=== PATIENT | male | born 1955 | race Caucasian/White ===

== ENCOUNTER → 2016-05-16 09:56 | Outpatient (CLI) | payer OTHER | END | disposition home or self-care (01) | LOC: D.RAD 09:56 | DX: Z02.71 Encounter for disability determination (principal) ==

== ENCOUNTER 2017-07-08 11:33 | Observation (INO) | payer MEDICARE ==
[~2017-07-08] VITALS: Ht 172.7 cm; Wt 82.1 kg
--- NOTE | ~2017-07-08 | HEMODYNAMI ---
PATIENT:MARLA RAINEY MEDICAL RECORD: [id number] : 53 LOCATION:[address] ADMISSION DATE: 07/08/17 Generatedon:07/09/201711:14 Patient name: MARLA RAINEY Patient #: [id number] SSN: : 1955 Date of study: 07/09/2017 Page: Of Hemodynamic Procedure Report Patient Data Patient Demographics Procedure consent was obtained First Name: MARLA Gender: Male Last Name: REDD : 1955 [facility] Initial: ALEX Age: 62 year(s) Patient #: [id number] Race: Unknown Additional ID: [id number] Contact details [address]: [address] [place] [address] DRIVE State: [place] City: [place] Zip code: [address] Past Medical History Allergies: No known allergies Admission Admission Data Admission Date: 07/08/2017 Admission Time: 13:33 Room #: 2127 Height (in.): 67.72 BSA: 1.95 (m2) Height (cm.): 172 BMI: 27.72 (kg/m2) Weight (lbs.): 180.78 Weight (kg.): 82 Procedure Procedure Types Cath Procedure Diagnostic Procedure C [facility] w/Coronaries Sedation Charges Moderate Sedation up to 45 minutes PCI Procedure Coronary Stent Coronary Stent Initial Procedure Description Procedure Date Procedure Date: 07/09/2017 Procedure Start Time: 10:26 Procedure End Time: 11:12 Procedure Staff Name Function Madhav Borja MD Performing Physician Elle Mon RT Monitor Madiha Hilton RT Scrub Aris Ambrocio RN Nurse Procedure Data Cath Procedure Fluoroscopy Diagnostic fluoroscopy Total fluoroscopy Time: 7.7 time: 7.7 min min Diagnostic fluoroscopy Total fluoroscopy dose: dose: 1360 mGy 1360 mGy Contrast Material Contrast Material Type Amount (ml) Isovue 300 120 Entry Location Entry Primary Successful Side Size Upsize Upsize Entry Closure Mukherjee ccessful Closure Location (Fr) 1 (Fr) 2 (Fr) Remarks Device Remarks Radial Right 6 Fr Mechanical artery Short Compression Estimated blood loss: 10 ml Diagnostic catheters Device Type Used For End Catheter Placement DIAGNOSTIC Ghulam 110cm Procedure 5Fr catheter ([id number]) Procedure Complications No complications Procedure Medications Medication Administration Route Dosage 0.9% NaCl I.V. 100 ml/hr Oxygen etCO2 Nasal cannula 2 l/min Heparin Flush Bag added to field 2 bags (1000units/500ml NS) Lidocaine 2% added to field 20 Radial Cocktail added to field 1 syringe (Verapomil 2mg/Nitro 400mcg/Heparin 1500units) Versed I.V. 2 mg Fentanyl I.V. 25 mcg Radial Cocktail I.A. 1 syringe (Verapomil 2mg/Nitro 400mcg/Heparin 1500units) Angiomax (bolus) I.V. 12 ml Angiomax Drip I.V. drip 28 ml/hr (250mg/50ml NS) (Standard) Versed I.V. 1 mg Angiomax Drip I.V. drip 28 ml/hr (250mg/50ml NS) (Standard) Plavix P.O. 300 mg Hemodynamics Rest BSA: 1.95 (m2) O2 Consumption: Estimated: 243.41 (ml/min) O2 Consumption indexed : Estimated:124.83 (ml/min/m) Heart Rate: 91 (bpm) Pressure Samples Time Site Value (mmHg) Purpose Heart Use Rate(bpm) 10:42 LV 153/12,3 EDP 91 Gradients Valve Time Site Site Mean SEP/DFP Peak To Heart Use 1 2 (mmHg) (sec/min) Peak Rate (mmHg) (bpm) Aortic 10:42 LV AO 122 Snapshots Pre Cath Intra NCS Post Cath Vital Signs Time Heart Resp SPO2 etCO2 NIBP (mmHg) Rhythm Pain Sedation Rate (ipm) (%) (mmHg) Status Level (bpm) 10:19:52 95 25 94 28 130/73(99) NSR 0 (11) 10(A) , No pain 10:24:33 92 18 93 28.7 121/69(87) NSR 0 (11) 10(A) , No pain 10:29:13 91 19 94 28 113/67(90) NSR 0 (11) 10(A) , No pain 10:33:50 90 13 94 27.2 111/66(83) NSR 0 (11) 9(A) , No pain 10:38:29 90 20 95 25.7 109/67(84) NSR 0 (11) 9(A) , No pain 10:43:01 91 22 95 21.9 88/60(74) NSR 0 (11) 9(A) , No pain 10:47:31 93 25 93 23.4 105/64(88) NSR 0 (11) 9(A) , No pain 10:52:08 91 22 92 19.6 118/63(81) NSR 0 (11) 9(A) , No pain 10:56:46 91 23 91 26.5 115/70(86) NSR 0 (11) 9(A) , No pain 11:01:23 90 22 93 26.5 122/69(94) NSR 0 (11) 10(A) , No pain 11:06:01 91 20 100 27.9 121/69(90) NSR 0 (11) 9(A) , No pain 11:10:40 92 22 93 26.4 129/75(102) NSR 0 (11) 9(A) , No pain Medications Time Medication Route Dose Verified Delivered Reason Not es Effectiveness by by 10:18:17 0.9% NaCl I.V. 100 Aris Aris Per physician ml/hr Cristóbal Ambrocio RN RN 10:18:29 Oxygen etCO2 2 l/min Aris Aris Per physician Nasal Cristóbal Ambrocio cannula RN RN 10:18:39 Heparin Flush added 2 bags Aris Aris used for Bag to Lorigan Lordeon procedure (1000units/500ml [facility] RN RN NS) 10:18:56 Lidocaine 2% added 20ml Aris Aris for local to vial Lorigan Lorigan anesthetic [facility] RN RN 10:19:11 Radial Cocktail added 1 Aris Aris used for (Verapomil to syringe Lorigan Lorigan procedure 2mg/Nitro field RN RN 400mcg/Heparin 1500units) 10:22:41 Versed I.V. 2 mg Aris Aris for sedation Cristóbal Ambrocio RN RN 10:22:50 Fentanyl I.V. 25 mcg Aris Aris for sedation Cristóbal Ambrocio RN RN 10:41:36 Radial Cocktail I.A. 1 Aris Madhav for (Verapomil syringe Cristóbal downs 2mg/Nitro RN 400mcg/Heparin 1500units) 10:53:23 Angiomax (bolus) I.V. 12 ml Aris Aris for Cristóbal Vazdeon anticoagulation RN RN 10:55:45 Angiomax Drip I.V. 28 Aris Aris for (250mg/50ml NS) drip ml/hr Cristóbal Ambrocio anticoagulation (Standard) RN RN 10:56:03 Versed I.V. 1 mg Aris Aris for sedation Cristóbal Ambrocio RN RN 11:11:01 Angiomax Drip I.V. 28 Aris Aris to sharp's (250mg/50ml NS) drip ml/hr Татьянаigan Lorigan (Standard) RN RN 11:11:46 Plavix P.O. 300 mg Aris Aris for Татьянаdeon Cristóbal antiplatelet RN RN therapy Procedure Log Time Note 9:58:16 Diagnostic Cath status Elective 9:58:20 Madiha Hilton RT(R) sent for patient. Start room use. 9:58:24 Time tracking: Call back (After hours or weekends) 9:58:37 Plan of Care:Hemodynamics will remain stable., Cardiac rhythm will remain stable., Comfort level will be maintained., Respiratory function will remain adequate., Patient/ family verbilizes understanding of procedure., Procedure tolerated without complication., Recovers from procedure without complications.. 9:59:13 Patient received from Med II to CCL 1 Alert and oriented. Tansferred to table in Supine position. 9:59:15 Warm blankets applied, and pete hugger turned on for patient comfort. 9:59:15 Correct patient and procedure confirmed by team. 9:59:17 Signed procedure consent form obtained from patient. 9:59:28 H&P Date Dictated: 07/08/2017 Within 30 days and on chart.. 9:59:32 Family in patients room. 9:59:34 Patient NPO since Midnight. 9:59:42 Patient allergic to No known allergies 10:00:19 Patient Height : 67.72 inches 10:00:24 Patient Weight : 180.78 lbs 10:09:18 Is the patient allergic to Iodine/contrast media? No. 10:09:20 Was the patient premedicated? No 10:09:21 Is patient on blood thinner?Yes 10:09:23 ACC The patient was administered the following blood thiners within the last 24 hours: ACCPlavix 10:09:25 Patient diabetic? Yes. 10:09:26 If diabetic: On Metformin? Yes 10:09:29 If on Metformin: Last Dose? 07/08/2017 10:09:34 Previous problem with sedation/anesthesia? No ? 10:09:36 Snore? Yes 10:09:37 Sleep apnea? No 10:09:38 Deviated septum? No 10:09:39 Opens mouth fully? Yes 10:09:39 Sticks out tongue? Yes 10:09:41 Airway obstruction? No ? 10:09:43 Dentures? No ? 10:09:48 Pre procedure: right dorsailis pedis pulse 2+ Normal; easily identifiable; not easily obliterated 10:09:50 Pre procedure: left dorsailis pedis pulse 2+ Normal; easily identifiable; not easily obliterated 10:09:53 Modified Timmy's test Radial < 7 seconds 10:09:54 Patient pain scale 0/10 ?. 10:10:04 IV patent on arrival in left forearm with 0.9% NaCl at [facility]. 10:10:06 Lab results completed and on chart. 10:10:10 Right Radial & Right Groin area was prepped with chlora-prep and draped in sterile fashion 10:10:11 Alarms reviewed by R. N. 10:10:12 Sharps counted by scrub and verified by R.N. 10:18:17 0.9% NaCl 100 ml/hr I.V. was administered by Aris Ambrocio RN; Per physician; 10:18:29 Oxygen 2 l/min etCO2 Nasal cannula was administered by Aris Ambrocio RN; Per physician; 10:18:39 Heparin Flush Bag (1000units/500ml NS) 2 bags added to field was administered by Aris Ambrocio RN; used for procedure; 10:18:56 Lidocaine 2% 20ml vial added to field was administered by Airs Ambrocio RN; for local anesthetic; 10:19:00 Vital chart was started 10:19:11 Radial Cocktail (Verapomil 2mg/Nitro 400mcg/Heparin 1500units) 1 syringe added to field was administered by Aris Ambrocio RN; used for procedure; 10:21:59 Physician arrived 10:22:00 --------ALL STOP TIME OUT------ 10:22:01 Final Timeout: patient, procedure, and site verified with staff and physician. All members of the team are in agreement. 10:22:15 Right Radial & Right Groin site verified by team. 10:22:24 Physical assessment completed. ASA score P 2 - A patient with mild systemic disease as per Madhav Borja MD. 10:22:33 Sedation plan: IV Moderate Sedation Medication:Versed, Fentanyl 10:22:41 Versed 2 mg I.V. was administered by Aris Ambrocio RN; for sedation; 10:22:50 Fentanyl 25 mcg I.V. was administered by Aris Ambrocio RN; for sedation; 10:22:55 Zero performed for pressure channel P1 10:23:21 Use device set Femoral Dx 10:23:22 ACIST Syringe (48848) opened to sterile field. 10:23:23 Bag Decanter (2002S) opened to sterile field. 10:23:24 Medline Cath Pack ([id number]) opened to sterile field. 10:23:24 DIAGNOSTIC WIRE .035 260cm J wire (543518) opened to sterile field. 10:23:26 ACIST Hand Control (43455) opened to sterile field. 10:23:26 ACIST Manifold (54653) opened to sterile field. 10:23:28 DIAGNOSTIC Multipack 5Fr catheter set (BD3623) opened to sterile field. 10:23:28 Tegaderm 4 x 4 (1626W) opened to sterile field. 10:24:25 SHEATH 6Fr Prelude Radial ([id number]) opened to sterile field. 10:25:59 Procedure started. 10:25:59 Full Disclosure recording started 10:26:18 Local anesthetic to right radial artery with Lidocaine 2% by Madhav Borja MD.INITIAL ACCESS ONLY 10:39:39 A 6 Fr Short sheath was inserted into the Right Radial artery 10:41:36 Radial Cocktail (Verapomil 2mg/Nitro 400mcg/Heparin 1500units) 1 syringe I.A. was administered by Madhav Borja MD; for vasodilation; 10:41:45 FIELDER XT 190cm guidewire ([id number]) opened to sterile field. 10:41:52 A DIAGNOSTIC Ghulam 110cm 5Fr catheter (418469) was advanced over the wire and used for Procedure. 10:42:08 fielder wire wire advanced. 10:42:14 LV angiography performed. 10:43:12 RCA angiography performed. 10:43:48 LCA angiography performed. 10:45:31 Catheter removed. 10:46:30 Proceeding to intervention. 10:50:46 COPILOT Valve Control (5684254) opened to sterile field. 10:50:49 INFLATOR Merit BasixCompak (CW2515) opened to sterile field. 10:50:50 GUIDE 6FR EBU 3.5 SH catheter ([id number]) opened to sterile field. 10:51:12 BMW 190cm [place] 2 J wire ([id number]) opened to sterile field. 10:51:45 6 Fr EBU 3.5 guide catheter was inserted over the wire 10:51:49 BMW wire advanced. 10:51:51 Wire advanced across lesion. 10:53:23 Angiomax (bolus) 12 ml I.V. was administered by Aris Ambrocio RN; for anticoagulation; 10:55:22 Inflate balloon Inflation number: 1 A EUPHORA 2.5 x 20 Balloon ([id number]) was prepped and advanced across the Mid LAD, then inflated to 6 GIDEON for 0:08 (min:sec). 10:55:42 Inflation number: 1 The EUPHORA 2.5 x 20 Balloon ([id number]) was reinflated across the Prox LAD, to 8 GIDEON for 0:07 (min:sec). 10:55:45 Angiomax Drip (250mg/50ml NS) (Standard) 28 ml/hr I.V. drip was administered by Aris Ambrocio RN; for anticoagulation; 10:56:03 Versed 1 mg I.V. was administered by Aris Ambrocio RN; for sedation; 10:56:15 Balloon removed over the wire. 11:00:26 Place stent Inflation Number: 2 A MELINDA RX 2.25 x 22 stent ([id number]) was prepped and advanced across the Mid LAD. The stent was deployed at 10 GIDEON for 0:21 (min:sec). 11:00:39 Inflation number: 3 The stent balloon was then re-inflated across the Mid LAD to 12 GIDEON for 0:10 (min:sec). 11:00:54 Stent catheter was removed intact over wire. 11:03:14 Place stent Inflation Number: 2 A MELINDA RX 2.5 x 26 stent ([id number]) was prepped and advanced across the Prox LAD. The stent was deployed at 14 GIDEON for 0:18 (min:sec). 11:03:58 Stent catheter was removed intact over wire. 11:07:08 Place stent Inflation Number: 4 A MELINDA RX 2.5 x 18 stent ([id number]) was prepped and advanced across the Mid LAD. The stent was deployed at 12 GIDEON for 0:12 (min:sec). 11:08:11 Wire removed. 11:08:11 Guide catheter removed. 11:09:10 TR BAND Standard ([id number]) opened to sterile field. 11::26 Sheath removed intact; hemostasis achieved with Mechanical Compression to the Right Radial artery. 11:09:28 Procedure ended.(Physican Out) 11:09:42 Fluoroscopy time 07.70 minutes. 11:09:48 Fluoroscopy dose: 1360 mGy 11:09:48 Flurop Dose total: 1360 11:09:59 Contrast amount:Isovue 300 120ml. 11:10:23 Sharps counted by scrub and verified by R.N. 11:10:30 TR band inflated with 13cc of air. 11:10:31 Insertion/operative site no bleeding no hematoma. 11:10:36 Post procedure rhythm: unchanged. 11:10:40 Estimated blood loss: 10 ml 11:10:42 Post procedure instruction explained to patient.Patient verbalizes understanding. 11:11:01 Angiomax Drip (250mg/50ml NS) (Standard) 28 ml/hr I.V. drip was administered by Aris Ambrocio RN; to sharp's; 11:11:20 Procedure type changed to Cath procedure, Diagnostic procedure, LHC, LHC w/Coronaries, Sedation Charges, Moderate Sedation up to 45 minutes, PCI procedure, Coronary Stent, Coronary Stent Initial 11:11:21 Procedure and supply charges have been captured, reviewed, submitted and are correct. 11:11:46 Plavix 300 mg P.O. was administered by Aris Ambrocio RN; for antiplatelet therapy; 11:11:53 Procedure Complication : No complications 11:11:57 Vital chart was stopped 11:11:58 See physician's report for complete and final results. 11:12:00 Report given to [facility]. 11:12:04 Patient transfered to [facility] with Bed. 11:12:06 Procedure ended. 11:12:06 Full Disclosure recording stopped 11:12:09 End room use (Document Last) 11:12:16 ACC-PCI Only Patient was given prescriptions, or instructed by Madhav Borja MD to start/continue the following medications upon discharge: Plavix Intervention Summary Intervention Notes Time ActionType Lesion and Equipment Used Action# Pressure Duration Attributes 10:55:22 Inflate Mid LAD EUPHORA 2.5 x 1 6 00:08 balloon 20 Balloon ([id number]) 10:55:42 Reinflate Prox LAD EUPHORA 2.5 x 1 8 00:07 balloon 20 Balloon ([id number]) 11:00:26 Place stent Mid LAD MELINDA RX 2.25 x 2 10 00:21 22 stent ([id number]) 11:00:39 Reinflate Mid LAD MELINDA RX 2.25 x 3 12 00:10 stent 22 stent balloon ([id number]) 11:03:14 Place stent Prox LAD MELINDA RX 2.5 x 2 14 00:18 26 stent ([id number]) 11:07:08 Place stent Mid LAD MELINDA RX 2.5 x 4 12 00:12 18 stent ([id number]) Device Usage Item Name Manufacture Quantity Catalog Number Hospital Part Current Minimal Lot# / Charge Number Stock Stock Serial# Code ACIST Syringe Acist 1 64250 339068 503876 605970 20 (56647) [employer] Bag Decanter Microtek 1 2001S 801391 20262 770382 5 () Medical Inc. Medline Cath Cardinal 1 [id number] 939576 73855 041040 5 Pack Health ([id number]) DIAGNOSTIC WIRE St Krish 1 041756 059309 456073 368101 30 .035 260cm J wire (851050) ACIST Hand Acist 1 20134 367714 930603 776884 5 Control (83997) [employer] Inc ACIST Manifold Acist 1 76288 606072 146404 756841 5 (29357) [employer] Inc DIAGNOSTIC Cardinal 1 BQ1699 042311 71226 270723 30 Multipack 5Fr Health catheter set (VW9357) Tegaderm 4 x 4 3M 1 1626W 087539 988561 896946 5 (1626W) SHEATH 6Fr Merit 1 [id number] 585439 287020 467164 5 Prelude Radial Medical ([id number]) FIELDER XT Maldonado 1 [id number] 861620 44484 225065 5 190cm guidewire Vascular ([id number]) DIAGNOSTIC Terumo 1 40-1703 061273 427914 466907 5 Ghulam 110cm 5Fr catheter (951983) COPILOT Valve Maldonado 1 8963070 540585 943235 562430 5 Control Vascular (7601304) INFLATOR Merit Merit 1 OI2771 824000 528115 590024 15 BasixComSaluspot Medical (EW1420) GUIDE 6FR EBU Medtronic 1 [id number] 768412 48099 717183 1 3.5 SH catheter ([id number]) BMW 190cm Maldonado 1 [id number] 278039 76895 402630 5 [place] 2 J Vascular wire ([id number]) EUPHORA 2.5 x Medtronic 1 [id number] 061755 409954 659815 5 [id number] 20 Balloon ([id number]) MELINDA RX 2.25 x Medtronic 1 [id number] 925757 5301184 592889 5 [id number] 22 stent ([id number]) MELINDA RX 2.5 x Medtronic 1 [id number] 103513 7045774 140206 5 [id number] 26 stent ([id number]) MELINDA RX 2.5 x Medtronic 1 [id number] 840155 1568564 788113 5 [id number] 18 stent ([id number]) TR BAND Terumo 1 [id number] 877035 913952 129045 40 Standard ([id number]) Signature Audit Goodell Stage Time Signature Unsigned Intra-Procedure 07/09/2017 Elle Mon 11:14:34 AM RT(R) Signatures Monitor : Elle Mon Signature : RT Date : Time : [facility] [address] [place] [address]
--- NOTE | ~2017-07-08 | EC ---
PATIENT:MARLA RAINEY DATE OF SERVICE: 07/08/17 SEX: M MEDICAL RECORD: [id number] DATE OF : 53 LOCATION:D.M2 D.212 AGE OF PATIENT: 62 ADMISSION DATE: 07/08/17 REFERRING PHYSICIAN: INTERPRETING PHYSICIAN: BEAU GARCIA MD ECHOCARDIOGRAM REPORT ECHO CHARGES 4 ECHO COMPLETE Date: 07/09 CLINICAL DIAGNOSIS: CHEST PAIN, POST STENT/CAD ECHOCARDIOGRAPHIC MEASUREMENTS (adult normal given) AC root (d.<3.7cm) 4.0 cm LV Septum d (<1.2 cm> 1.5 cm Valve Excursion cm LV Septum (systole) 1.6 cm Left Atria (s.<4.0cm> 4.2 cm LVPW d(<1.2cm) 1.5 cm RV (d.<2.3cm) 3.8 cm LVPW (sytole) 1.8 cm LV diastole(<5.6CM) 4.4 cm MV E-F(>70mm/sec) cm LV systole 3.6 cm LVOT Diameter 1.8 cm MV exc.(>10mm) 2.2 cm Est.ejection fraction (50-75%) % DOPPLER: LVIT cm/sec A 29.0 cm/sec E 144 cm/sec LA cm/sec RVSP 15 mmHg LVOT 95 cm/sec AOP1/2T m/s Asc. Ao 145 cm/sec RVOT 121 cm/sec RA cm/sec PA 145 cm/sec AV Gradient Peak 8.38 mmHg AV Mean 4.63 mmHg AV Area 1.8 cm MV Gradient Peak 8.42 mmHg MV Mean 2.85 mmHg MV Area cm COMMENTS: Senior Engineering Team Leader: Fitting Room Inspector: Val Merida TAPE# PACS Pericardial Effusion N DATE OF SERVICE: PROCEDURE: Transthoracic echocardiogram. FINDINGS: 1. The left ventricle ejection fraction is 65%. The patient has mild left ventricular hypertrophy. Inflow characteristics are normal. 2. The left atrium is normal size, normal function. 3. The mitral valve is normal structure and function. There is no obvious mitral regurgitation. ECHOCARDIOGRAM REPORT [id number] MARLA RAINEY 4. The tricuspid valve is normal in structure and function. RVSP appears to be normal. 5. The right ventricle is normal. 6. The right atrium is normal. 7. The pulmonic valve is normal. 8. Pericardium shows no effusion. CONCLUSION: This is a normal echocardiogram for the patient's stated age. No regional wall motion abnormality seen. TRANSINT:[id number] Voice Confirmation ID: [id number] DOCUMENT ID: [id number] BEAU GARCIA MD at 0942 CC: [id number] DICTATION DATE: 07/10/17713 AUTHORS MOTIVATIONAL: 07/10/17 0830 DIS IN 07/10/17 [place] [id number] [place] [id number]
[2017-07-08 12:17] LABS: BASOPHILS 0.6 % (0-2); EOSINOPHILS 1.1 % (0-7); HEMATOCRIT 45.3 % (42.0-54.0); HEMOGLOBIN 15.7 g/dL (13.5-17.5); IMMATURE GRANULOCYTES 0.1 % (0-5); LYMPHOCYTES 10.1 % (15-50); MCH 31.5 pg (26.0-34.0); MCHC 34.7 g/dL (31.0-37.0); MEAN PLATELET VOLUME 9.6 fL (7.4-10.4); MONOCYTES 7.4 % (2-11); NEUTROPHILS 80.7 % (40-80); PLATELET COUNT 216 10x3/uL (130-400); RBC 4.98 10x6/uL (4.20-6.10); RDW 12.2 % (11.5-14.5); WBC 8.8 10x3/uL (4.8-10.8)
[2017-07-08 12:24] LABS: INR 0.95 (0.85-1.17); PROTIME 12.3 SECONDS (11.6-15.0)
[2017-07-08 12:26] LABS: APTT 31.6 SECONDS (22.8-39.4)
[2017-07-08 12:27] LABS: D-DIMER-QUANTITATIVE 0.61 ug/mLFEU (0.20-0.54)
[2017-07-08 12:29] LABS: ALBUMIN 3.8 g/dL (3.4-5.0); ALKALINE PHOSPHATASE 118 U/L (46-116); ALT (SGPT) 42 U/L (10-68); BILIRUBIN - TOTAL 0.56 mg/dL (0.2-1.3); CALC OSMOLALITY 271 mosm/kg (275-300); CALCIUM 9.3 mg/dL (8.5-10.1); CARBON DIOXIDE 21.6 mmol/L (21.0-32.0); CHLORIDE - SERUM 96 mmol/L (98-107); CREATININE - SERUM 1.3 mg/dL (0.6-1.3); GLUCOSE 248 mg/dL (74-106); POTASSIUM - SERUM 4.1 mmol/L (3.5-5.1); PROTEIN - SERUM 8.5 g/dL (6.4-8.2); SODIUM 131 mmol/L (136-145); UREA NITROGEN 16 mg/dL (7-18); eGFR NON AFRICAN AMERICAN 59 mL/min (90-120)
[2017-07-08 12:33] LABS: CREATINE KINASE 164 UL (21-232); LIPASE 186 U/L (73-393)
[2017-07-08 12:34] LABS: TROPONIN-I < 0.017 ng/mL (0.000-0.060)
[2017-07-08] MEDS ORDERED: NEURONTIN600 MG PO (15:08)
[2017-07-08] MEDS ORDERED: BAYER CHEWABLE81 MG PO (15:08)
[2017-07-08] MEDS ORDERED: GLUCOPHAGE1000 MG PO (15:08)
[2017-07-08] MEDS ORDERED: GLYBURIDE5 M1 PO (15:09)
[2017-07-08 15:21] VITALS: BP 129/89; Ht 172.7 cm; Wt 82.1 kg
[2017-07-08 16:39] VITALS: BP 129/89
[2017-07-08 19:18] LABS: CKMB 2.6 U/L (0.0-3.6); CREATINE KINASE 133 UL (21-232); TROPONIN-I < 0.017 ng/mL (0.000-0.060)
[2017-07-09 01:28] LABS: CKMB 2.3 U/L (0.0-3.6); CREATINE KINASE 153 UL (21-232); TROPONIN-I < 0.017 ng/mL (0.000-0.060)
[2017-07-09 05:48] VITALS: BP 156/92
[2017-07-09 05:52] LABS: BASOPHILS 0.1 % (0-2); EOSINOPHILS 0 % (0-7); HEMATOCRIT 41.4 % (42.0-54.0); HEMOGLOBIN 14.4 g/dL (13.5-17.5); IMMATURE GRANULOCYTES 0.3 % (0-5); LYMPHOCYTES 6.1 % (15-50); MCH 31.3 pg (26.0-34.0); MCHC 34.8 g/dL (31.0-37.0); MEAN PLATELET VOLUME 9.8 fL (7.4-10.4); MONOCYTES 4.2 % (2-11); NEUTROPHILS 89.3 % (40-80); PLATELET COUNT 246 10x3/uL (130-400); RDW 12.3 % (11.5-14.5)
[2017-07-09 05:57] LABS: WBC 14.2 10x3/uL (4.8-10.8)
[2017-07-09 06:20] LABS: ANION GAP 17.9 mmol/L (8-16); CALCIUM 8.4 mg/dL (8.5-10.1); CARBON DIOXIDE 21.9 mmol/L (21.0-32.0); CREATININE - SERUM 1.1 mg/dL (0.6-1.3); POTASSIUM - SERUM 3.8 mmol/L (3.5-5.1)
[2017-07-09 06:47] LABS: CKMB 2.6 U/L (0.0-3.6); CREATINE KINASE 158 UL (21-232); TROPONIN-I < 0.017 ng/mL (0.000-0.060)
[2017-07-09 08:02] VITALS: BP 165/85
[2017-07-09] MEDS ORDERED: PLAVIX75 MG PO (11:25)
[2017-07-09] MEDS ORDERED: METOPROLOL TART50 MG PO (11:25)
[2017-07-09] MEDS ORDERED: LIPITOR20 MG PO (11:25)
[2017-07-09] MEDS ORDERED: NITROQUICK0.4 MG SL (11:26)
[2017-07-09] MEDS ORDERED: ASPIRIN81 MG PO (11:26)
[2017-07-09 21:57] VITALS: BP 124/73
[2017-07-10 01:08] VITALS: BP 103/68
[2017-07-10 05:54] VITALS: BP 119/56
== END 2017-07-10 07:38 | disposition home or self-care (01) ==
LOC: D.ER 11:33 → D.EDHOLD 13:33 → OBSVTIME 13:34 → D.M2 13:53
PROVIDERS: Emergency Medicine
DX: I25.110 Atherosclerotic heart disease of native coronary artery with unstable angina pectoris (principal); F32.9 Major depressive disorder, single episode, unspecified; F41.9 Anxiety disorder, unspecified; E78.00 Pure hypercholesterolemia, unspecified

== ENCOUNTER 2017-08-20 11:27 | Observation (INO) | payer MEDICARE ==
[~2017-08-20] VITALS: Ht 172.7 cm; Wt 81.1 kg
[2017-08-20] VITALS (11 sets, daily range): BP systolic 100–216; BP diastolic 57–101; Ht 172.7 cm; Wt 81.1 kg
--- NOTE | ~2017-08-20 | HEMODYNAMI ---
PATIENT:MARLA RAINEY MEDICAL RECORD: [id number] : 53 LOCATION:D. D.2119 ADMISSION DATE: 08/20/17 Generatedon:08/21/20179:25 Patient name: MARLA RAINEY Patient #: [id number] SSN: : 1955 Date of study: 08/21/2017 Page: Of Hemodynamic Procedure Report Patient Data Patient Demographics Procedure consent was obtained First Name: MARLA Gender: Male Last Name: REDD : 1955 [facility] Initial: ALEX Age: 62 year(s) Patient #: [id number] Race: Unknown Additional ID: [id number] Contact details [address]: [address] [place] [address] DRIVE State: [place] City: [place] Zip code: [address] Past Medical History Allergies: No known allergies Admission Admission Data Admission Date: 08/20/2017 Admission Time: 18:28 Arrival Date: 08/20/2017 Arrival Time: 18:28 Admit Source: Other Insurance Payor: Private Room #: D.2119 health insurance Procedure Procedure Types Cath Procedure Diagnostic Procedure LHC LHC w/Coronaries Peripheral Cath Diagnostic Procedure Cath Peripheral Renal Arteriogram Procedure Description Procedure Date Procedure Date: 08/21/2017 Procedure Start Time: 9:10 Procedure End Time: 9:23 Procedure Staff Name Function Car Merida MD Performing Physician Elle Mon RT Monitor Madiha Hilton RT Scrub Tammy Soto RN Nurse Procedure Data Cath Procedure Fluoroscopy Diagnostic fluoroscopy Total fluoroscopy Time: 2.5 time: 2.5 min min Diagnostic fluoroscopy Total fluoroscopy dose: 576 dose: 576 mGy mGy Contrast Material Contrast Material Type Amount (ml) Isovue 300 74 Entry Location Entry Primary Successful Side Size Upsize Upsize Entry Closure Succes sful Closure Location (Fr) 1 (Fr) 2 (Fr) Remarks Device Remarks Femoral Right 5 Fr Exoseal artery Estimated blood loss: 5 ml Diagnostic catheters Device Type Used For End Catheter Placement MULTIPACK JL 4.0 5Fr Left Coronary catheter Angiography MULTIPACK 3DRC 5Fr Right Coronary catheter Angiography MULTIPACK Pigtail 5 Fr LV Angiography catheter Procedure Complications No complications Procedure Medications Medication Administration Route Dosage Oxygen NC 2 l/min Lidocaine 1% added to field 20 Heparin Flush Bag added to field 2 bags (1000units/500ml NS) 0.9% NaCl I.V. 100 ml/hr Versed I.V. 1 mg Fentanyl I.V. 50 mcg Versed I.V. 1 mg Fentanyl I.V. 50 mcg Plavix P.O. 75 mg Fentanyl I.V. 50 mcg Hemodynamics Rest Heart Rate: 80 (bpm) Pressure Samples Time Site Value (mmHg) Purpose Heart Use Rate(bpm) 9:19 LV 134/-1,21 Snapshot 79 9:19 AO 138/59(93) Pullback 79 9:19 LV 145/3,28 Pullback 79 Gradients Valve Time Site 1 Site 2 Mean SEP/DFP Peak To Heart Use (mmHg) (sec/min) Peak Rate (mmHg) (bpm) Aortic 9:19 LV AO 13 22 7 79 145/3,28 138/59(93) Calculations Valve P-P Mean Valve Index Valve Source Name Gradient Area Flow (cm2) Aortic 7 13 7 13 Snapshots Pre Cath Intra NCS Post Cath Vital Signs Time Heart Resp SPO2 etCO2 NIBP (mmHg) Rhythm Pain Sedation Rate (ipm) (%) (mmHg) Status Level (bpm) 9:01:34 78 26 94 26 155/84(117) NSR 0 (11) 10(A) , No pain 9:06:02 77 15 94 23.8 124/54(100) NSR 0 (11) 10(A) , No pain 9:10:14 77 13 93 26.1 117/69(86) NSR 0 (11) 10(A) , No pain 9:14:22 55 12 95 20.9 108/72(86) NSR 0 (11) 9(A) , No pain 9:18:26 77 14 97 21.6 125/70(98) NSR 0 (11) 10(A) , No pain 9:22:36 78 15 96 23.8 118/74(98) NSR 0 (11) 10(A) , No pain Medications Time Medication Route Dose Verified Delivered Reason Notes Eff ectiveness by by 9:02:10 Plavix P.O. 75 mg Car Soto RN antiplatelet therapy 9:05:23 Oxygen NC 2 Car Buffie used for l/min Fuad Soto RN procedure 9:05:29 Lidocaine 1% added 20ml Car Car for local to vial Fuad Merdia MD anesthetic field 9:05:36 Heparin Flush added 2 Car Car used for Bag to bags Fuad Merida MD procedure (1000units/500ml field NS) 9:05:45 0.9% NaCl I.V. 100 Car Buffie Per ml/hr Fuad Soto RN physician 9:10:23 Versed I.V. 1 mg Car Buffie for sedation Fuad Soto RN 9:10:28 Fentanyl I.V. 50 Car Buffie for sedation mcg Fuad Soto RN 9:12:37 Versed I.V. 1 mg Car Buffie for sedation Fuad Soto RN 9:12:41 Fentanyl I.V. 50 Car Buffie for sedation mcg Fuad Soto RN 9:17:30 Fentanyl I.V. 50 Car Buffie for sedation mcg Fuad Soto RN Procedure Log Time Note 8:18:56 Elle Mon RT(R) sent for patient. Start room use. 8:18:57 Time tracking: Regular hours (M-F 7:00 - 5:00) 8:19:02 Plan of Care:Hemodynamics will remain stable., Cardiac rhythm will remain stable., Comfort level will be maintained., Respiratory function will remain adequate., Patient/ family verbilizes understanding of procedure., Procedure tolerated without complication., Recovers from procedure without complications.. 8:25:50 Diagnostic Cath Status : Elective 8:26:07 Admit Source: Other 8:26:15 Arrival Date: 08/20/2017 6:28:00 PM 8:26:20 Insurance Payor : Private health insurance 9:00:18 Patient received from Med II to CCL 2 Alert and oriented. Tansferred to table in Supine position. 9:00:19 Warm blankets applied, and pete hugger turned on for patient comfort. 9:00:19 Correct patient and procedure confirmed by team. 9:00:21 Signed procedure consent form obtained from patient. 9:00:22 ECG and BP/O2 sat monitors applied to patient. 9:00:22 Vital chart was started 9:00:23 Baseline sample Acquired. 9:00:27 Rhythm: sinus rhythm 9:02:10 Plavix 75 mg P.O. was administered by Tammy Soto RN; for antiplatelet therapy; 9:05:23 Oxygen 2 l/min NC was administered by Tammy Soto RN; used for procedure; 9:05:29 Lidocaine 1% 20ml vial added to field was administered by Car Merida MD; for local anesthetic; 9:05:36 Heparin Flush Bag (1000units/500ml NS) 2 bags added to field was administered by Car Merida MD; used for procedure; 9:05:45 0.9% NaCl 100 ml/hr I.V. was administered by Tammy Soto RN; Per physician; 9:08:14 Full Disclosure recording started 9:08:18 H&P Date Dictated: 08/21/2017 Within 30 days and on chart., H&P Addendum completed by physician on day of procedure. (MUST COMPLETE FOR ALL OUTPATIENTS). 9:08:20 Pre-procedure instructions explained to patient. 9:08:20 Pre-op teaching completed and patient verbalized understanding. 9:08:22 Family unavailable. 9:08:28 Patient NPO since Midnight. 9:08:31 Is the patient allergic to Iodine/contrast media? No. 9:08:32 Was the patient premedicated? No 9:08:33 Is patient on blood thinner?Yes 9:08:35 ACC The patient was administered the following blood thiners within the last 24 hours: ACCPlavix 9:08:39 Patient diabetic? Yes. 9:08:40 If diabetic: On Metformin? No 9:08:43 Previous problem with sedation/anesthesia? No ? 9:08:45 Snore? Yes 9:08:46 Sleep apnea? No 9:08:47 Deviated septum? No 9:08:48 Opens mouth fully? Yes 9:08:49 Sticks out tongue? Yes 9:08:50 Airway obstruction? No ? 9:08:53 Dentures? No ? 9:08:55 Pre procedure: right dorsailis pedis pulse 1+ Palpable, but thready & weak; easily obliterated 9:08:57 Pre procedure: left dorsailis pedis pulse 1+ Palpable, but thready & weak; easily obliterated 9:08:59 Patient pain scale 0/10 ?. 9:09:06 IV patent on arrival in left forearm with 0.9% NaCl at O. 9:09:57 Lab results completed and on chart. 9:10:02 Right groin area was prepped with chlora-prep and draped in sterile fashion 9:10:03 Alarms reviewed by Damion N. 9:10:03 Sharps counted by scrub and verified by R.N. 9:10:05 Physician arrived 9:10:05 --------ALL STOP TIME OUT------ 9:10:06 Final Timeout: patient, procedure, and site verified with staff and physician. All members of the team are in agreement. 9:10:08 Right groin site verified by team. 9:10:10 Physical assessment completed. ASA score P 2 - A patient with mild systemic disease as per Car Merida MD. 9:10:14 Sedation plan: IV Moderate Sedation Medication:Versed, Fentanyl 9:10:18 Procedure started. 9:10:20 Use device set Femoral Dx 9:10:21 ACIST Syringe (11662) opened to sterile field. 9:10:22 Bag Decanter (2002) opened to sterile field. 9:10:22 Medline Cath Pack ([id number]) opened to sterile field. 9:10:23 Versed 1 mg I.V. was administered by Tammy Soto RN; for sedation; 9:10:23 DIAGNOSTIC WIRE .035 260cm J wire (317822) opened to sterile field. 9:10:24 ACIST Hand Control (07749) opened to sterile field. 9:10:25 ACIST Manifold (19454) opened to sterile field. 9:10:25 DIAGNOSTIC Multipack 5Fr catheter set ([id number]) opened to sterile field. 9:10:26 Tegaderm 4 x 4 (1626W) opened to sterile field. 9:10:27 SHEATH Prelude 5Fr 0.035 (PBE-6M-77-035) opened to sterile field. 9:10:28 Fentanyl 50 mcg I.V. was administered by Tammy Soto RN; for sedation; 9:10:33 Local anesthetic to right femoral artery with Lidocaine 1% by Car Merida MD.INITIAL ACCESS ONLY 9:10:42 A 5 Fr sheath was inserted into the Right Femoral artery 9:10:52 Zero performed for pressure channel P1 9:12:17 A MULTIPACK JL 4.0 5Fr catheter was advanced over the wire and used for Left Coronary Angiography. 9:12:37 Versed 1 mg I.V. was administered by Tammy Soto RN; for sedation; 9:12:41 Fentanyl 50 mcg I.V. was administered by Tammy Soto RN; for sedation; 9:12:57 LCA angiography performed. 9:12:59 Injector settings: Ml/sec: 3, Volume: 6, 9:14:40 Catheter removed. 9:14:45 A MULTIPACK 3DRC 5Fr catheter was advanced over the wire and used for Right Coronary Angiography. 9:16:55 Bilateral renal angiography performed. 9:17:01 Injector settings: Ml/sec: 3, Volume: 6, 9:17:30 Fentanyl 50 mcg I.V. was administered by Tammy Soto RN; for sedation; 9:17:52 Catheter removed. 9:17:58 A MULTIPACK Pigtail 5 Fr catheter was advanced over the wire and used for LV Angiography. 9:19:18 LV hemodynamics recorded. 9:19:19 LV gram done using DOVER 9:19:22 Injector settings: Ml/sec: 5, Volume: 15, 9:19:29 EF : 55 % 9:20:20 Catheter removed. 9:20:26 EXOSEAL 5Fr (EX500) opened to sterile field. 9:20:36 Sheath removed intact; hemostasis achieved with Exoseal to the Right Femoral artery. 9:20:47 Procedure ended.(Physican Out) 9:21:28 Fluoroscopy time 02.50 minutes. 9:21:33 Flurop Dose total: 576 9:21:33 Fluoroscopy dose: 576 mGy 9:21:38 Contrast amount:Isovue 300 74ml. 9:21:40 Sharps counted by scrub and verified by R.N. 9:21:44 Insertion/operative site no bleeding no hematoma. 9:21:47 Post-op/insertion site Right Femoral artery dressed using a 4 x 4 and Tegaderm. 9:21:50 Post right femoral artery:stable 9:21:51 Post Procedure Pulses reassessed and unchanged 9:21:53 Post procedure rhythm: unchanged. 9:21:56 Estimated blood loss: 5 ml 9:23:00 Post procedure instruction explained to patient.Patient verbalizes understanding. 9:23:00 Patient needs reinforcement of post procedure teaching. 9:23:19 Procedure type changed to Cath procedure, Diagnostic procedure, LHC, LHC w/Coronaries, Peripheral Cath Diagnostic Procedure, Cath Peripheral, Renal Arteriogram 9:23:20 Procedure and supply charges have been captured, reviewed, submitted and are correct. 9:23:24 Procedure Complication : No complications 9:23:26 Vital chart was stopped 9:23:26 See physician's report for complete and final results. 9:23:30 Report given to [facility]. 9:23:37 Patient transfered to [facility] with Stretcher. 9:23:40 Procedure ended. 9:23:40 Full Disclosure recording stopped 9:23:45 End room use (Document Last) Device Usage Item Name Manufacture Quantity Catalog Number Hospital Part Current M inimal Lot# / Charge Number Stock Stock Serial# Code ACIST Syringe Acist 1 81659 [id number] 239377 938682 2 0 (96457) [employer] Bag Decanter Microtek 1 863353 97857 783597 5 (2001S) Medical Inc. Medline Cath Cardinal 1 [id number] 609237 76467 731029 5 Pack Health ([id number]) DIAGNOSTIC WIRE St Krish 1 595070 605845 952457 919375 3 0 .035 260cm J wire (993323) ACIST Hand Acist 1 10427 287827 976420 932748 5 Control (78267) [employer] ACIST Manifold Acist 1 35801 062110 207605 660691 5 (86463) [employer] DIAGNOSTIC Cardinal 1 [id number] 571262 84151 370878 3 0 Multipack 5Fr Health catheter set (AE6750) Tegaderm 4 x 4 3M 1 1626W 344507 766018 969140 5 (1626W) SHEATH Prelude Merit 1 [id number]-2H-88-035 889054 159227 357577 5 5Fr 0.035 Medical (JNY-5Q-52-035) MULTIPACK JL Cardinal 1 032534 5 4.0 5Fr Health catheter MULTIPACK 3DRC Cardinal 1 680914 5 5Fr catheter Health MULTIPACK Cardinal 1 705311 5 Pigtail 5 Fr Health catheter EXOSEAL 5Fr Cardinal 1 EX500 426052 873132 440105 1 0 (EX500) Health Signature Audit [place] Stage Time Signature Unsigned Intra-Procedure 08/21/2017 Madiha Hilton 9:25:34 AM RT(R) Signatures Monitor : Elle Mon Signature : RT Date : Time : [id number] [place] [address]
[~2017-08-20 11:27] MED LIST: ASPIRIN81 MG PO; BAYER CHEWABLE81 MG PO; GLUCOPHAGE1000 MG PO; GLYBURIDE5 M1 PO; LIPITOR20 MG PO; METOPROLOL TART50 MG PO; NEURONTIN600 MG PO; NITROQUICK0.4 MG SL; PLAVIX75 MG PO
[2017-08-20 13:52] LABS: BASOPHILS 0.2 % (0-2); EOSINOPHILS 1.4 % (0-7); HEMATOCRIT 42.4 % (42.0-54.0); HEMOGLOBIN 14.4 g/dL (13.5-17.5); IMMATURE GRANULOCYTES 0.2 % (0-5); LYMPHOCYTES 9.4 % (15-50); MCH 30.8 pg (26.0-34.0); MCV 90.6 fL (80.0-100.0); MEAN PLATELET VOLUME 10.1 fL (7.4-10.4); MONOCYTES 5.4 % (2-11); NEUTROPHILS 83.4 % (40-80); RBC 4.68 10x6/uL (4.20-6.10); RDW 12.4 % (11.5-14.5); WBC 9.7 10x3/uL (4.8-10.8)
[2017-08-20 13:58] LABS: PLATELET COUNT 174 10x3/uL (130-400)
[2017-08-20 14:10] LABS: ALBUMIN 3.9 g/dL (3.4-5.0); ALKALINE PHOSPHATASE 123 U/L (46-116); ALT (SGPT) 39 U/L (10-68); BILIRUBIN - TOTAL 0.59 mg/dL (0.2-1.3); CALC OSMOLALITY 277 mosm/kg (275-300); CALCIUM 9.4 mg/dL (8.5-10.1); CARBON DIOXIDE 27.6 mmol/L (21.0-32.0); CHLORIDE - SERUM 98 mmol/L (98-107); CREATININE - SERUM 1.2 mg/dL (0.6-1.3); GLUCOSE 224 mg/dL (74-106); POTASSIUM - SERUM 4.5 mmol/L (3.5-5.1); PROTEIN - SERUM 8.2 g/dL (6.4-8.2); SODIUM 135 mmol/L (136-145); UREA NITROGEN 16 mg/dL (7-18); eGFR NON AFRICAN AMERICAN 65 mL/min (90-120)
[2017-08-20 14:22] LABS: CKMB 4.9 U/L (0.0-3.6); CREATINE KINASE 208 UL (21-232); MAGNESIUM - SERUM 2.2 mg/dL (1.8-2.4)
[2017-08-20 14:25] LABS: TROPONIN-I < 0.017 ng/mL (0.000-0.060)
[2017-08-20 17:31] LABS: ANION GAP 14.9 mmol/L (8-16); CALCIUM 9.3 mg/dL (8.5-10.1); CREATININE - SERUM 1.2 mg/dL (0.6-1.3); POTASSIUM - SERUM 3.9 mmol/L (3.5-5.1)
[2017-08-20 19:16] LABS: CKMB 3.9 U/L (0.0-3.6); CREATINE KINASE 168 UL (21-232)
[2017-08-20 19:17] LABS: TROPONIN-I < 0.017 ng/mL (0.000-0.060)
[2017-08-20] MEDS ORDERED: GLUCOTROL 5 MG T5 MG PO (21:07)
[2017-08-21] VITALS: BP 102/47
[2017-08-21 01:20] LABS: CKMB 2.9 U/L (0.0-3.6); CREATINE KINASE 136 UL (21-232)
[2017-08-21 01:21] LABS: TROPONIN-I < 0.017 ng/mL (0.000-0.060)
[2017-08-21 04:00] VITALS: BP 115/56
[2017-08-21 06:48] LABS: BASOPHILS 0.2 % (0-2); EOSINOPHILS 1.4 % (0-7); HEMATOCRIT 38.9 % (42.0-54.0); HEMOGLOBIN 13.4 g/dL (13.5-17.5); IMMATURE GRANULOCYTES 0.1 % (0-5); LYMPHOCYTES 15.1 % (15-50); MCH 30.8 pg (26.0-34.0); MCHC 34.4 g/dL (31.0-37.0); MCV 89.4 fL (80.0-100.0); MEAN PLATELET VOLUME 9.8 fL (7.4-10.4); MONOCYTES 9.7 % (2-11); NEUTROPHILS 73.5 % (40-80); PLATELET COUNT 188 10x3/uL (130-400); RBC 4.35 10x6/uL (4.20-6.10); RDW 12.4 % (11.5-14.5); WBC 9.7 10x3/uL (4.8-10.8)
[2017-08-21 07:40] LABS: ALBUMIN 3.4 g/dL (3.4-5.0); ALKALINE PHOSPHATASE 96 U/L (46-116); ALT (SGPT) 32 U/L (10-68); BILIRUBIN - TOTAL 0.61 mg/dL (0.2-1.3); CHLORIDE - SERUM 100 mmol/L (98-107); CKMB 2.8 U/L (0.0-3.6); CREATINE KINASE 138 UL (21-232); CREATININE - SERUM 1.3 mg/dL (0.6-1.3); POTASSIUM - SERUM 3.7 mmol/L (3.5-5.1); PROTEIN - SERUM 7.2 g/dL (6.4-8.2); SODIUM 136 mmol/L (136-145); eGFR NON AFRICAN AMERICAN 59 mL/min (90-120)
[2017-08-21 08:00] VITALS: BP 129/64
[2017-08-21 08:00] LABS: CALC OSMOLALITY 274 mosm/kg (275-300); GLUCOSE 114 mg/dL (74-106); TROPONIN-I < 0.017 ng/mL (0.000-0.060); UREA NITROGEN 19 mg/dL (7-18)
== END 2017-08-21 11:50 | disposition home or self-care (01) ==
LOC: D.ER 11:27 → D.EDHOLD 18:28 → D.CLR 18:28 → D.EDHOLD 18:28 → D.M2 18:28 → OBSVTIME 18:29 → D.M2 19:45 → D.CLR 08-21 10:41
PROVIDERS: Family Medicine; Internal Medicine Cardiovascular Disease
DX: I25.110 Atherosclerotic heart disease of native coronary artery with unstable angina pectoris (principal); Z95.5 Presence of coronary angioplasty implant and graft; I10 Essential (primary) hypertension; E11.9 Type 2 diabetes mellitus without complications

== ENCOUNTER → 2017-09-11 16:55 | Outpatient (CLI) | payer MEDICARE ==
[2017-08-20 20:42] VITALS: BMI 28.1
[~2017-09-11 16:55] MED LIST changes: +GLUCOTROL 5 MG T5 MG PO
[2017-09-11 20:54] LABS: CHOL - HDL RATIO 3.8 ratio (2.3-4.9); LDL-HDL RATIO 2.2 ratio (1.5-3.5)
== END | disposition home or self-care (01) ==
LOC: D.LABREF 16:55
PROVIDERS: Internal Medicine Cardiovascular Disease
DX: E78.2 Mixed hyperlipidemia (principal)

== ENCOUNTER → 2017-10-02 15:53 | Outpatient (CLI) | payer MEDICARE ==
[2017-08-20 20:42] VITALS: BMI 28.1
== END | disposition home or self-care (01) ==
LOC: D.MRI 15:53
DX: M48.56XA Collapsed vertebra, not elsewhere classified, lumbar region, initial encounter for fracture (principal)

== ENCOUNTER → 2018-02-27 08:43 | Outpatient (CLI) | payer MEDICARE ==
[2017-08-20 20:42] VITALS: BMI 28.1
--- NOTE | ~2018-02-27 | ST ---
PATIENT:MARLA RAINEY MEDICAL RECORD: [id number] SEX: M LOCATION:[facility] ORDER #: ADMISSION DATE: 02/27/18 AGE OF PATIENT: 63 REFERRING PHYSICIAN: INTERPRETING PHYSICIAN: NINO MORALES MD DATE OF SERVICE: 02/27/2018 PROCEDURE: Nuclear stress test. INDICATION: Angina, coronary artery disease, hypertension, and hyperlipidemia. He was exercised on standard Lexiscan protocol with 32 mCi of sestamibi injected at peak stress and 10 mCi was used previously for rest images. FINDINGS: Gated SPECT reveals preserved ejection fraction at 72% with decreased thickening and brightening throughout the inferior segments. SPECT IMAGING: Cardiolite was used as myocardial perfusion agent. There is a fixed perfusion defect inferiorly, compatible with previous inferior myocardial infarction; however, there is reversibility in the lateral segments. This includes the basilateral, mid lateral, and apical lateral segments. OVERALL IMPRESSION: This is an abnormal nuclear stress test with fixed perfusion defect inferiorly and reversible ischemia laterally, suggestive of multivessel coronary artery disease. We will proceed with coronary angiography as followup study. TRANSINT:[id number] Voice Confirmation ID: [id number] DOCUMENT ID: [id number] NINO MORALES MD CC: [id number] DICTATION DATE: 02/28/18 1210 BACKUP ADMINISTRATIVE COORDINATOR: 02/28/18 2153 DEP CLI 02/27/18 [address] [place] [address]
== END | disposition home or self-care (01) ==
LOC: D.HCCARDIO 08:43
DX: I25.10 Atherosclerotic heart disease of native coronary artery without angina pectoris (principal)

== ENCOUNTER 2018-03-02 06:57 | Outpatient (CLI) | payer MEDICARE ==
[~2018-03-02] VITALS: Ht 172.7 cm; Wt 81.8 kg
--- NOTE | ~2018-03-02 | HEMODYNAMI ---
PATIENT:MARLA RAINEY MEDICAL RECORD: [id number] : 53 LOCATION:D.CAT ADMISSION DATE: 03/02/18 Generatedon:03/02/20189:16 Patient name: MARLA RAINEY Patient #: [id number] SSN: : 1955 Date of study: 03/02/2018 Page: Of Hemodynamic Procedure Report Patient Data Patient Demographics Procedure consent was obtained First Name: MARLA Gender: Male Last Name: REDD : 1955 [facility] Initial: ALEX Age: 63 year(s) Patient #: [id number] Race: Unknown Additional ID: [id number] Contact details [address]: [address] [place] [address] DRIVE State: [place] City: [place] Zip code: [address] Past Medical History Allergies: No known allergies Admission Admission Data Admission Date: 03/02/2018 Admission Time: 6:57 Procedure Procedure Types Cath Procedure Diagnostic Procedure LHC LH w/Coronaries Sedation Charges Moderate Sedation up to 15 minutes PCI Procedure Coronary Stent Coronary Stent Initial Procedure Description Procedure Date Procedure Date: 03/02/2018 Procedure Start Time: 9:02 Procedure End Time: 9:16 Procedure Staff Name Function Johnathan Best MD Performing Physician Angela Jackson RT Monitor Whitney Olivas RN Nurse Toy Newell RN Pump Installer Procedure Data Cath Procedure Fluoroscopy Diagnostic fluoroscopy Total fluoroscopy Time: 2.8 time: 2.8 min min Diagnostic fluoroscopy Total fluoroscopy dose: 747 dose: 747 mGy mGy Contrast Material Contrast Material Type Amount (ml) Isovue 300 69 Entry Location Entry Primary Successful Side Size Upsize Upsize Entry Closure Mukherjee ccessful Closure Location (Fr) 1 (Fr) 2 (Fr) Remarks Device Remarks Radial Right 6 Fr Mechanical artery Short Compression Estimated blood loss: 10 ml Diagnostic catheters Device Type Used For End Catheter Placement DIAGNOSTIC [place] 110cm 5 LV Angiography Fr catheter ([id number]) DIAGNOSTIC [place] 110cm 5 Left Coronary Fr catheter ([id number]) Angiography DIAGNOSTIC [place] 110cm 5 Right Coronary Fr catheter ([id number]) Angiography Procedure Complications No complications Procedure Medications Medication Administration Route Dosage 0.9% NaCl I.V. 100 ml/hr Oxygen etCO2 Nasal cannula 2 l/min Lidocaine 2% added to field 20 Heparin Flush Bag added to field 2 bags (1000units/500ml NS) Radial Cocktail added to field 1 syringe (Verapomil 2mg/Nitro 400mcg/Heparin 1500units) Versed I.V. 2 mg Fentanyl I.V. 100 mcg Versed I.V. 2 mg Heparin Bolus I.V. 4000 units Hemodynamics Rest Heart Rate: 71 (bpm) Snapshots Pre Cath Intra NCS Post Cath Vital Signs Time Heart Resp SPO2 etCO2 NIBP (mmHg) Rhythm Pain Sedation Rate (ipm) (%) (mmHg) Status Level (bpm) 8:41:35 70 16 99 30.5 163/97(138) NSR 0 (11) 10(A) , No pain 8:46:06 70 17 96 20.1 139/75(110) NSR 0 (11) 10(A) , No pain 8:50:24 68 13 97 33.5 130/75(93) NSR 0 (11) 10(A) , No pain 8:54:40 68 11 96 38 127/76(97) NSR 0 (11) 10(A) , No pain 8:58:58 69 12 98 28.3 143/81(134) NSR 0 (11) 10(A) , No pain 9:03:12 69 17 97 35 135/84(108) NSR 0 (11) 9(A) , No pain 9:07:22 71 12 98 32 119/75(96) NSR 0 (11) 9(A) , No pain 9:11:38 71 16 96 37.1 117/76(98) NSR 0 (11) 10(A) , No pain Medications Time Medication Route Dose Verified Delivered Reason Note s Effectiveness by by 8:41:15 0.9% NaCl I.V. 100 Johnathan Whitney used for ml/hr Nasir Olivas right of way worker 8:41:21 Oxygen etCO2 2 l/min Johnathan Whitney used for Nasal Nasir Olivas procedure cannula RN 8:41:26 Lidocaine 2% added 20ml Johnathan Mann for local to vial Nasir Best MD anesthetic field 8:41:31 Heparin Flush added 2 bags Johnathan Mann used for Bag to Nasir Best MD procedure (1000units/500ml field NS) 8:41:41 Radial Cocktail added 1 Johnathan Mann used for (Verapomil to syringe Nasir Best MD procedure 2mg/Nitro field 400mcg/Heparin 1500units) 8:56:59 Versed I.V. 2 mg Johnathan Whitney for sedation Nasir Olivas RN 8:57:05 Fentanyl I.V. 100 mcg Johnathan Fierroyla for sedation Nasir Olivas RN 9:01:30 Versed I.V. 2 mg Johnathan Whitney for sedation Nasir Olivas RN 9:07:17 Heparin Bolus I.V. 4000 Johnathan Whitney for veri fied units Nasir Olivas anticoagulation with Dr. RIVERA Best Procedure Log Time Note 8:34:46 Time tracking: Regular hours (M-F 7:00 - 5:00) 8:34:49 Plan of Care:Hemodynamics will remain stable., Cardiac rhythm will remain stable., Comfort level will be maintained., Respiratory function will remain adequate., Patient/ family verbilizes understanding of procedure., Procedure tolerated without complication., Recovers from procedure without complications.. 8:35:03 Toy Newell RN sent for patient. Start room use. 8:35:17 Patient received from Pre/Post Procedure Room to CCL 1 Alert and oriented. Tansferred to table in Supine position. 8:35:18 Warm blankets applied, and pete hugger turned on for patient comfort. 8:35:18 Correct patient and procedure confirmed by team. 8:35:20 Signed procedure consent form obtained from patient. 8:35:21 ECG and BP/O2 sat monitors applied to patient. 8:35:21 Full Disclosure recording started 8:40:15 Vital chart was started 8:41:15 0.9% NaCl 100 ml/hr I.V. was administered by Whitney Olivas RN; used for procedure; 8:41:21 Oxygen 2 l/min etCO2 Nasal cannula was administered by Whitney Olivas RN; used for procedure; 8:41:26 Lidocaine 2% 20ml vial added to field was administered by Johnathan Best MD; for local anesthetic; 8:41:31 Heparin Flush Bag (1000units/500ml NS) 2 bags added to field was administered by Johnathan Best MD; used for procedure; 8:41:41 Radial Cocktail (Verapomil 2mg/Nitro 400mcg/Heparin 1500units) 1 syringe added to field was administered by Johnathan Best MD; used for procedure; 8:42:53 Baseline sample Acquired. 8:43:02 Rhythm: 1st degree heart block 8:44:37 Pre-procedure instructions explained to patient. 8:44:37 Pre-op teaching completed and patient verbalized understanding. 8:44:39 Family in patients room. 8:44:40 Patient NPO since Midnight. 8:44:46 Patient allergic to No known allergies 8:44:48 Is the patient allergic to Iodine/contrast media? No. 8:44:51 Is patient on blood thinner?Yes 8:44:53 ACC The patient was administered the following blood thiners within the last 24 hours: ACCPlavix 8:49:19 Previous problem with sedation/anesthesia? No ? 8:49:20 Snore? Yes 8:49:21 Sleep apnea? No 8:49:23 Deviated septum? No 8:49:24 Opens mouth fully? Yes 8:49:25 Sticks out tongue? Yes 8:49:26 Airway obstruction? No ? 8:49:28 Dentures? No ? 8:49:34 Patient diabetic? Yes. 8:49:35 If diabetic: On Metformin? Yes 8:49:38 If on Metformin: Last Dose? 02/28/2018 8:49:42 Pre procedure: right dorsailis pedis pulse 2+ Normal; easily identifiable; not easily obliterated 8:49:44 Modified Timmy's test Ulnar < 7 seconds 8:49:46 Patient pain scale 0/10 ?. 8:49:51 IV patent on arrival in left forearm with 0.9% NaCl at KVO. 8:49:52 Lab results completed and on chart. 8:49:55 Right Radial & Right Groin area was prepped with chlora-prep and draped in sterile fashion 8:49:56 Alarms reviewed by R. N. 8:49:56 Sharps counted by scrub and verified by R.N. 8:49:59 Use device set Radial Dx or PCI 8:50:00 ACIST Syringe (51093) opened to sterile field. 8:50:01 Medline Cath Pack ([id number]) opened to sterile field. 8:50:01 Bag Decanter (2001S) opened to sterile field. 8:50:02 DIAGNOSTIC WIRE .035 260cm J wire (389361) opened to sterile field. 8:50:03 ACIST Hand Control (62166) opened to sterile field. 8:50:04 ACIST Manifold (05730) opened to sterile field. 8:50:05 Tegaderm 4 x 4 (1626W) opened to sterile field. 8:50:05 MBrace Wrist Support ([id number]) opened to sterile field. 8:50:07 SHEATH 6FR Slender (14-1424) opened to sterile field. 8:50:59 H&P Date Dictated: 03/02/2018 New H&P dictated by physician.. 8:51:13 Physician paged 8:55:37 Final Timeout: patient, procedure, and site verified with staff and physician. All members of the team are in agreement. 8:55:41 Right Radial site verified by team. 8:55:44 Physical assessment completed. ASA score P 2 - A patient with mild systemic disease as per Johnathan Best MD. 8:55:47 Sedation plan: IV Moderate Sedation Medication:Versed, Fentanyl 8:56:31 Zero performed for pressure channel P1 8:56:59 Versed 2 mg I.V. was administered by Whitney Olivas RN; for sedation; 8:57:05 Fentanyl 100 mcg I.V. was administered by Whitney Olivas RN; for sedation; 9:01:30 Versed 2 mg I.V. was administered by Whitney Olivas RN; for sedation; 9:02:03 Procedure started. 9:02:07 Local anesthetic to right radial artery with Lidocaine 2% by Johnathan Best MD.INITIAL ACCESS ONLY 9:02:38 A 6 Fr Short sheath was inserted into the Right Radial artery 9:03:12 A DIAGNOSTIC [place] 110cm 5 Fr catheter (378349) was advanced over the wire and used for LV Angiography. 9:04:13 LV gram done using DOVER 9:04:17 Injector settings: Ml/sec: 5, Volume: 15, 9:04:23 EF : 60 % 9:04:31 A DIAGNOSTIC [place] 110cm 5 Fr catheter (076178) was advanced over the wire and used for Left Coronary Angiography. 9:04:45 Use device set NASIR PCI 9:04:49 INFLATOR Merit Emorypak (BE5888) opened to sterile field. 9:04:59 CHOICE PT Extra Support 182cm wire ([id number]) opened to sterile field. 9:05:53 A DIAGNOSTIC [place] 110cm 5 Fr catheter (405835) was advanced over the wire and used for Right Coronary Angiography. 9:06:01 Catheter removed. 9:07:09 GUIDE 6FR XBLAD 3.5 catheter ([id number]) opened to sterile field. 9:07:17 Heparin Bolus 4000 units I.V. was administered by Whitney Olivas RN; for anticoagulation; verified with Dr. Best 9:07:23 6 Fr XBLAD 3.5 guide catheter was inserted over the wire 9:09:00 CHOICE PT ES wire advanced. 9:10:15 Place stent Inflation Number: 1 A MELINDA RX 2.5 x 26 stent ([id number]) was prepped and advanced across the Mid LAD. The stent was deployed at 0 GIDEON for 0:08 (min:sec). 9:10:45 Inflation number: 2 The stent balloon was then re-inflated across the Mid LAD to 15 GIDEON for 0:07 (min:sec). 9:11:13 Stent catheter was removed intact over wire. 9:11:13 Wire removed. 9:11:14 Guide catheter removed. 9:11:21 Sheath removed intact; hemostasis achieved with Mechanical Compression to the Right Radial artery. 9:11:23 Procedure ended.(Physican Out) 9:12:45 Fluoroscopy time 02.80 minutes. 9:12:49 Fluoroscopy dose: 747 mGy 9:12:49 Flurop Dose total: 747 9:12:54 Contrast amount:Isovue 300 69ml. 9:12:56 Sharps counted by scrub and verified by R.N. 9:13:00 TR band inflated with 9cc of air. 9:13:01 Insertion/operative site no bleeding no hematoma. 9:13:08 Post right radial artery:stable, clean and dry 9:13:10 Post Procedure Pulses reassessed and unchanged 9:13:12 Post-procedure physical assessment completed. ASA score P 2 - A patient with mild systemic disease as per Johnathan Best MD. 9:13:14 Post procedure rhythm: unchanged. 9:13:16 Estimated blood loss: 10 ml 9:13:18 Post procedure instruction explained to patient.Patient verbalizes understanding. 9:13:20 Patient needs reinforcement of post procedure teaching. 9:13:30 Procedure type changed to Cath procedure, Diagnostic procedure, LHC, LHC w/Coronaries, Sedation Charges, Moderate Sedation up to 15 minutes, PCI procedure, Coronary Stent, Coronary Stent Initial 9:13:56 See physician's report for complete and final results. 9:14:02 Procedure Complication : No complications 9:14:25 TR BAND Standard ([id number]) opened to sterile field. 9:14:40 Procedure and supply charges have been captured, reviewed, submitted and are correct. 9:16:31 Vital chart was stopped 9:16:33 Report given to Pre/Post Procedure Room. 9:16:36 Patient transfered to Pre/Post Procedure Room with Stretcher. 9:16:37 Procedure ended. 9:16:37 Full Disclosure recording stopped 9:16:41 End room use (Document Last) Intervention Summary Intervention Notes Time ActionType Lesion and Equipment Used Action# Pressure Duration Attributes 9:10:15 Place stent Mid LAD MELINDA RX 2.5 x 1 0 00:08 26 stent ([id number]) 9:10:45 Reinflate Mid LAD MELINDA RX 2.5 x 2 15 00:07 stent 26 stent balloon ([id number]) Device Usage Item Name Manufacture Quantity Catalog Number Hospital Part Current M inimal Lot# / Charge Number Stock Stock Serial# Code ACIST Syringe Acist 1 56167 860520 136165 771766 2 0 (00192) Medical Systems Inc Medline Cath Medline 1 [id number] 144280 70005 749557 5 Pack ([id number]) Bag Decanter Microtek 1 2001S 781661 73042 420381 5 () Medical Inc. DIAGNOSTIC St Krish 1 296290 509534 206229 124170 3 0 WIRE .035 260cm J wire (939766) ACIST Hand Acist 1 24939 748514 968508 828507 5 Control Medical (91079) Systems Inc ACIST Manifold Acist 1 25333 946848 419076 952478 5 (44334) Medical Systems Inc Tegaderm 4 x 4 3M 1 1626W 798494 844877 535916 5 (1626W) MBrace Wrist Advanced 1 140-0250-00 721649 02583 697091 5 Support Vascular ([id number]) Dynamics SHEATH 6FR Terumo 1 [id number] 315356 675967 626254 5 Slender (80-1060) DIAGNOSTIC Terumo 1 40-5013 097552 781638 339544 5 Amboy 110cm 5 Fr catheter (737756) INFLATOR Merit Merit 1 ZN5038 633900 697021 422784 1 5 PhotoFix [employer].com (NY4063) CHOICE PT [place] 1 [id number] 547468 669462 716863 5 Extra Support Scientific 182cm wire (2551209G7) GUIDE 6FR Cardinal 1 [id number] 928816 956602 183275 1 0 XBLAD 3.5 Health catheter (36777870) MELINDA RX 2.5 x Medtronic 1 [id number] 652693 2537199 909669 5 [id number] 26 stent ([id number]) TR BAND Terumo 1 [id number] 305304 970121 587392 4 0 Standard ([id number]) Signature Audit [place] Stage Time Signature Unsigned Intra-Procedure 03/02/2018 Angela 9:16:51 AM Counts RT(R) Signatures Monitor : Angela Signature : Counts RT Date : Time : [place] [id number] [place] [address]
[2018-03-02] MEDS ORDERED: GLIPIZIDE10 MG PO (07:32)
[2018-03-02] MEDS ORDERED: LIPITOR10 MG PO (07:33)
[2018-03-02] MEDS ORDERED: VITAMIN D31000 UNI2 PO (07:34)
[2018-03-02 07:42] LABS: BASOPHILS 0.8 % (0-2); EOSINOPHILS 8.7 % (0-7); HEMATOCRIT 41.9 % (42.0-54.0); HEMOGLOBIN 14.4 g/dL (13.5-17.5); IMMATURE GRANULOCYTES 0.1 % (0-5); MCHC 34.4 g/dL (31.0-37.0); MCV 90.1 fL (80.0-100.0); MEAN PLATELET VOLUME 9.4 fL (7.4-10.4); MONOCYTES 10.5 % (2-11); NEUTROPHILS 61.9 % (40-80); PLATELET COUNT 181 10x3/uL (130-400); RBC 4.65 10x6/uL (4.20-6.10); RDW 12.9 % (11.5-14.5); WBC 7.2 10x3/uL (4.8-10.8)
[2018-03-02 07:44] VITALS: BP 138/70; Ht 172.7 cm; Wt 81.8 kg
[2018-03-02 07:50] LABS: ANION GAP 13.9 mmol/L (8-16); CARBON DIOXIDE 24.4 mmol/L (21.0-32.0); CREATININE - SERUM 1.3 mg/dL (0.6-1.3); POTASSIUM - SERUM 4.3 mmol/L (3.5-5.1)
--- NOTE | 2018-03-08 14:56 | HP ---
PATIENT: MARLA RAINEY MEDICAL RECORD: [id number] ACCOUNT: [id number] LOCATION:TEJINDER : 53 ADMISSION DATE: 03/02/18 PCP: BRAD HAMPTON MD HISTORY AND PHYSICAL EXAMINATION DIAGNOSES: 1. Angina. 2. Abnormal nuclear stress test. 3. Hypertension. 4. Hyperlipidemia. 5. Diabetes. HISTORY OF PRESENT ILLNESS: This is a gentleman with multiple cardiac risk factors who began having chest discomfort, now risk stratified with stress testing Cardiolite imaging revealing perfusion defects inferiorly and laterally, now brought for cardiac catheterization. PHYSICAL EXAMINATION: GENERAL APPEARANCE: Well-nourished, well-developed, appears stated age. Level of distress, comfortable. PSYCHIATRIC: Mental status, alert, normal affect. Orientation, oriented to time, place and person. EYES: Lids and conjunctiva, noninjected. No discharge, no pallor. ENT: Lips, teeth, gums, normal dentition. Oropharynx, no cyanosis, no pallor. NECK: Carotid arteries, bilateral normal upstroke, no bruits, no thrills. JUGULAR VEINS: No jugular venous pressure or distention. CERVICAL LYMPH NODES: Nontender, nonenlarged. THYROID: Not enlarged. Nontender. No nodules. LUNGS: Respiratory effort, unlabored. CHEST: Normal curvature. No thoracic deformity. No chest wall tenderness. Percussion, resonant. Auscultation, clear. No wheezes, no rales, no rhonchi. CARDIOVASCULAR: Precordial exam, nondisplaced. No heaves or pericardial thrills. Rate and rhythm, regular. Heart sounds, normal S1, normal S2. No S3, no gallop, no rub. Systolic murmur, not heard. Diastolic murmur, not heard. EXTREMITIES: No cyanosis, no edema. Peripheral pulses, full and equal in all extremities, except as noted. No bruits appreciated. ABDOMEN: Soft, nondistended. Normal aorta. No bruit. Nontender. No masses. Liver, nontender, no hepatomegaly. Spleen, nontender, no splenomegaly. MUSCULOSKELETAL: No joint tenderness. No joint swelling. No erythema. NEUROLOGICAL: Normal gait, normal strength, normal tone. SKIN: Warm and dry. OVERALL IMPRESSION: Anginal symptomatology with abnormal nuclear stress test, multiple risk factors, high likelihood of hemodynamically significant coronary artery disease. We will proceed with coronary angiography. Further care depends upon findings of the angiography. TRANSINT:[id number] Voice Confirmation ID: [id number] DOCUMENT ID: [id number] HISTORY AND PHYSICAL [id number] MARLA RAINEY, NINO TORRE at 1456 CC: [id number] DICTATION DATE: 03/02/18 0857 COAL SAMPLER: 03/02/18 0951 DEP CLI 03/02/18 [place] [id number] [place] [address]
--- NOTE | 2018-03-08 14:56 | OP ---
PATIENT NAME: MARLA RAINEY MEDICAL RECORD: [id number] :53 LOCATION:D.CAT ADMISSION DATE: SURGEON: NINO MORALES MD DATE OF OPERATION: 03/02/2018 PROCEDURES: 1. PTCA stent RCA. 2. Left heart catheterization. 3. Selective coronary angiography. 4. Left ventriculogram. INDICATION: Angina and coronary artery disease. PROCEDURE IN DETAIL: After informed consent was obtained and after a detailed description of risks, benefits as well as alternative therapies, the patient elected to proceed with angiogram and angioplasty. The right radial area was prepped and draped in normal sterile fashion. Right radial artery was cannulated via modified Seldinger technique with placement of 6-Marshallese sheath. All catheters exchanged through this sheath. FINDINGS: The left ventriculogram was performed in standard 30-degree DOVER view, reveals preserved cardiac wall motion, ejection fraction 55%. SELECTIVE CORONARY ANGIOGRAPHY: 1. Left main is with no significant angiographic disease. 2. Left anterior descending has previously placed stents with 90% in-stent restenosis in the mid distal vessel. 3. The left circumflex has moderate irregularities, but no flow-limiting stenosis. 4. 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 Distal right coronary artery fills via left to right collaterals. PTCA STENT OF THE LAD: The stent used was a 2.5 x 26 mm [place]. Result was 0% residual stenosis. OVERALL IMPRESSION: Successful PTCA stent of the left anterior descending going from 90% initial stenosis that was in-stent restenosis to 0% residual. TRANSINT:[id number] Voice Confirmation ID: [id number] DOCUMENT ID: [id number] NINO MORALES MD at 1456 CC: [id number] DICTATION DATE: 03/02/18 0916 COMMUNITY PLACEMENT WORKER: 03/02/18 1044 DEP CLI 03/02/18 [place] [id number] [place] [id number]
== END 2018-03-02 12:55 | disposition home or self-care (01) ==
LOC: D.CATH 06:57
PROVIDERS: Internal Medicine Interventional Cardiology
DX: I25.119 Atherosclerotic heart disease of native coronary artery with unspecified angina pectoris (principal); I10 Essential (primary) hypertension; E11.9 Type 2 diabetes mellitus without complications; E78.5 Hyperlipidemia, unspecified; R94.30 Abnormal result of cardiovascular function study, unspecified

== ENCOUNTER 2018-04-24 16:28 | Emergency (ER) | payer MEDICARE ==
[~2018-04-24] VITALS: Ht 172.7 cm; Wt 81.8 kg
[~2018-04-24 16:28] MED LIST changes: +GLIPIZIDE10 MG PO; +LIPITOR10 MG PO; +VITAMIN D31000 UNI2 PO
[2018-04-24 16:53] VITALS: Ht 172.7 cm; Wt 81.8 kg
[2018-04-24] MEDS ORDERED: ASPIRIN325 MG PO (16:55)
[2018-04-24] MEDS ORDERED: NIASPAN500 MG PO (16:56)
[2018-04-24 17:33] LABS: BASOPHILS 0.6 % (0-2); EOSINOPHILS 1.8 % (0-7); HEMATOCRIT 42.7 % (42.0-54.0); HEMOGLOBIN 14.5 g/dL (13.5-17.5); IMMATURE GRANULOCYTES 0.1 % (0-5); LYMPHOCYTES 12.9 % (15-50); MCH 30.7 pg (26.0-34.0); MCV 90.3 fL (80.0-100.0); MEAN PLATELET VOLUME 9.5 fL (7.4-10.4); MONOCYTES 7.8 % (2-11); NEUTROPHILS 76.8 % (40-80); RBC 4.73 10x6/uL (4.20-6.10); RDW 12.6 % (11.5-14.5); WBC 9.9 10x3/uL (4.8-10.8)
[2018-04-24 17:34] LABS: PLATELET COUNT 228 10x3/uL (130-400)
[2018-04-24 17:49] LABS: ALBUMIN 3.5 g/dL (3.4-5.0); ALKALINE PHOSPHATASE 105 U/L (46-116); ALT (SGPT) 32 U/L (10-68); CALC OSMOLALITY 273 mosm/kg (275-300); CARBON DIOXIDE 27.2 mmol/L (21.0-32.0); CHLORIDE - SERUM 98 mmol/L (98-107); CREATININE - SERUM 1.4 mg/dL (0.6-1.3); GLUCOSE 136 mg/dL (74-106); POTASSIUM - SERUM 4.2 mmol/L (3.5-5.1); PROTEIN - SERUM 7.9 g/dL (6.4-8.2); SODIUM 135 mmol/L (136-145); UREA NITROGEN 18 mg/dL (7-18); eGFR NON AFRICAN AMERICAN 54 mL/min (90-120)
[2018-04-24 17:56] LABS: CKMB 7.1 U/L (0.0-3.6); CREATINE KINASE 241 UL (21-232)
[2018-04-24 18:02] LABS: TROPONIN-I < 0.017 ng/mL (0.000-0.060)
[2018-04-24] MEDS ORDERED: KLONOPIN0.5 MG PO (19:08)
[2018-04-24 19:37] VITALS: BP 156/79
== END 2018-04-24 19:37 | disposition home or self-care (01) ==
LOC: D.ER 16:28
PROVIDERS: Family Medicine
DX: F41.9 Anxiety disorder, unspecified (principal); I10 Essential (primary) hypertension

== ENCOUNTER → 2020-09-08 08:56 | Outpatient (CLI) | payer MEDICARE, BC ==
[2019-04-30 09:45] VITALS: BMI 27.2
[~2020-09-08 08:56] MED LIST changes: +ASPIRIN325 MG PO; +KLONOPIN0.5 MG PO; +LISINOPRIL10 MG PO; +NIASPAN500 MG PO
== END | disposition home or self-care (01) ==
LOC: D.HCCARDIO 08:56
PROVIDERS: ATTEND Internal Medicine Cardiovascular Disease
DX: I25.10 Atherosclerotic heart disease of native coronary artery without angina pectoris (principal)